=== PATIENT | female | born 1940 | race Caucasian/White ===

== ENCOUNTER 2017-09-08 15:57 | Inpatient (IN) | payer MEDICARE ==
[~2017-09-08] VITALS: Ht 162.6 cm; Wt 69.9 kg
[~2017-09-08 15:57] MED LIST: GABA-826 PO; LORA10TA75 PO; METO25TA35 PO; OMEP20CA9 PO; OXYC5TAB3 PO; PARO30TA45 PO
[2017-09-08] MEDS ORDERED: ASPIRIN 81 MG TABLET CHEW PO ONE (16:30)
[2017-09-08] MEDS ORDERED: ONDANSETRON 2MG/ML, 2ML IVPush ONE (16:30)
[2017-09-08] MEDS ORDERED: SODIUM CHLORIDE FLUSH 10ML SYR IVF ONE (16:30)
[2017-09-08] MEDS: PLEASE ENTER HEIGHT AND WEIGHT MC SCH (16:30)
[2017-09-08 16:53] LABS: HEMATOCRIT 41.7 % (34.6-47.8); HEMOGLOBIN 14.1 g/dL (11.7-16.4); WHITE BLOOD COUNT 7.3 x10^3/uL (3.4-10)
[2017-09-08 17:01] LABS: ASPARTATE AMINO TRANSFERASE 16 U/L (15-37); BLOOD UREA NITROGEN 12 mg/dL (7-18)
[2017-09-08] MEDS ORDERED: morphine SULFATE 10 MG/ML, 1ML ONE (17:03)
[2017-09-08] MEDS ORDERED: ASPIRIN 81 MG TABLET CHEW ONE (17:03)
[2017-09-08] MEDS ORDERED: ONDANSETRON 2MG/ML, 2ML ONE (17:03)
[2017-09-08] MEDS: MORPHINE SULFATE 4 MG/ML, 1ML IVPush PRN ×2 (17:08→18:04)
[2017-09-08 17:09] LABS: IS PT STATUS REG ER OR PRE ER? YES
[2017-09-08] MEDS ORDERED: SODIUM CHLORIDE 0.9% 1,000 ML IV ONE (17:44)
[2017-09-08] MEDS ORDERED: SODIUM CHLORIDE FLUSH 10ML SYR IVF PRN (18:00)
[2017-09-08] MEDS ORDERED: morphine SULFATE 10 MG/ML, 1ML IVPush PRN (18:30)
[2017-09-08] MEDS ORDERED: hydrALAzine 20 MG/ML, 1ML IVPush PRN (18:30)
[2017-09-08] MEDS ORDERED: ONDANSETRON 2MG/ML, 2ML IVPush PRN (18:30)
[2017-09-08] MEDS ORDERED: NITROGLYCERIN 0.4 MG BOTTLE (25 TABS) SL PRN (18:30)
[2017-09-08] MEDS ORDERED: POTASSIUM CHLORIDE 20 MEQ TAB.ER.PRT PO ONE (18:30)
[2017-09-08] MEDS ORDERED: LORATADINE 10 MG TABLET PO PRN (18:30)
[2017-09-08] MEDS ORDERED: ACETAMINOPHEN 325 MG TABLET PO PRN (18:30)
[2017-09-08] MEDS ORDERED: OXYcodone IR 5MG TABLET PO PRN (18:30)
[2017-09-08] MEDS ORDERED: SODIUM CHLORIDE FLUSH 10ML SYR IVF SCH (21:00)
[2017-09-08 21:05] VITALS: BP 142/85
[2017-09-08] MEDS: GABAPENTIN 100 MG CAPSULE PO SCH (22:06)
[2017-09-08] MEDS: METOPROLOL TARTRATE 25 MG TABLET PO SCH (22:06)
[2017-09-08] MEDS: HEPARIN 5,000 UNITS/ML, 1ML SQ SCH (22:07)
[2017-09-08 22:53] LABS: IS PT STATUS REG ER OR PRE ER? NO
[2017-09-09] MEDS ORDERED: MAGNESIUM SULFATE PMX 2GM/50ML 50 ML IV ONE
[2017-09-09] MEDS: PLEASE ENTER HEIGHT AND WEIGHT MC SCH (00:30)
[2017-09-09 01:48] VITALS: BP 100/64
[2017-09-09 05:24] LABS: HEMATOCRIT 35.5 % (34.6-47.8); WHITE BLOOD COUNT 6.2 x10^3/uL (3.4-10)
[2017-09-09 05:46] LABS: ASPARTATE AMINO TRANSFERASE 11 U/L (15-37); BLOOD UREA NITROGEN 7 mg/dL (7-18)
[2017-09-09 05:49] LABS: IS PT STATUS REG ER OR PRE ER? NO
[2017-09-09] MEDS ORDERED: ASPIRIN 325 MG TABLET EC PO SCH (06:00)
[2017-09-09] MEDS: HEPARIN 5,000 UNITS/ML, 1ML SQ SCH ×2 (06:21→14:00)
[2017-09-09] MEDS ORDERED: PNEUMOCOCCAL 23 VACCINE IM-VACC ONE (06:30)
[2017-09-09 07:14] VITALS: BP 100/63
[2017-09-09] MEDS ORDERED: REGADENOSON 0.4 MG/5 ML SYRINGE ONE (07:56)
[2017-09-09] MEDS ORDERED: PAROXETINE 10 MG TABLET PO SCH (09:00)
[2017-09-09] MEDS: METOPROLOL TARTRATE 25 MG TABLET PO SCH (11:50)
[2017-09-09] MEDS: GABAPENTIN 100 MG CAPSULE PO SCH ×2 (11:51→16:00)
[2017-09-09 12:54] VITALS: BP 109/61
[2017-09-09] MEDS ORDERED: ASPI-650 PO (15:07)
[2017-09-09] MEDS ORDERED: OMNIPAQUE 350 MG/ML, 100ML BOTTLE ONE (18:20)
== END 2017-09-09 19:28 | disposition home or self-care (01) | DRG 392 ==
LOC: ED 17:18 → EDIP 18:06 → 5SO 20:49
PROVIDERS: ADMIT Internal Medicine; ATTEND Family Medicine
DX: K52.9 Noninfective gastroenteritis and colitis, unspecified (principal); E87.5 Hyperkalemia; E86.0 Dehydration; E44.1 Mild protein-calorie malnutrition; R17 Unspecified jaundice; M06.9 Rheumatoid arthritis, unspecified; R07.89 Other chest pain; Z68.26 Body mass index [BMI] 26.0-26.9, adult; Z88.0 Allergy status to penicillin; I10 Essential (primary) hypertension; K21.9 Gastro-esophageal reflux disease without esophagitis; Z79.82 Long term (current) use of aspirin; Z80.6 Family history of leukemia; Z82.49 Family history of ischemic heart disease and other diseases of the circulatory system; Z86.010 Personal history of colon polyps
CPT/HCPCS: 36415; 71010; 74177; 78452; 80053; 80061; 83605; 83690; 83735; 83880; 84439; 84443; 84484; 85025; 85610; 85730; 90732; 93005; 93017; 96374; 96375; 96376; J1644; J2405; J2785; Q9967; A9502; C9898; J3475; J7030

== ENCOUNTER 2018-10-24 17:41 | Emergency (ER) | payer MEDICARE ==
[~2018-10-24] VITALS: Ht 162.6 cm; Wt 70.6 kg
[~2018-10-24 17:41] MED LIST changes: +ASPI-650 PO
[2018-10-24] MEDS ORDERED: SODIUM CHLORIDE FLUSH 10ML SYR IVF ONE (18:00)
--- NOTE | 2018-10-24 18:03 | NUR ---
PT REPORTS HAVING CONSTANT RUQ PAIN, THAT RADIATES TO HER BACK, FOR 3 DAYS. PT IS ALERT, ORIENTED, WITH NAD. PT IS CONNECTED TO THE MONITOR. CALL LIGHT WITHIN REACH.
[2018-10-24 18:07] VITALS: BP 168/88
[2018-10-24 18:13] LABS: BASOPHILS # (AUTO) 0.06 x10^3/uL (0-0.1); BASOPHILS % (AUTO) 1 % (0-1); EOSINOPHILS # (AUTO) 0.15 x10^3/uL (0-0.4); EOSINOPHILS % (AUTO) 2 % (1-7); LYMPHOCYTES # (AUTO) 1.89 x10^3/uL (1-3.4); LYMPHOCYTES % (AUTO) 21 % (22-44); MD NO; MEAN CORPUSCULAR HEMOGLOBIN 29.2 pg (27.0-34.8); MEAN CORPUSCULAR HGB CONC 34.2 g/dL (32.4-35.8); MEAN CORPUSCULAR VOLUME 85.4 fL (80-100); MEAN PLATELET VOLUME 9.4 fL (7.4-10.4); MONOCYTES # (AUTO) 0.72 x10^3/uL (0.2-0.8); MONOCYTES % (AUTO) 8 % (2-9); NEUTROPHILS # (AUTO) 6.11 x10^3/uL (1.8-6.8); NEUTROPHILS % (AUTO) 69 % (42-75); PLATELET COUNT 308 x10^3/uL (130-400); RED BLOOD COUNT 4.72 x10^6/uL (3.82-5.3); RED CELL DISTRIBUTION WIDTH 14.7 % (9.6-15.2)
[2018-10-24 18:26] LABS: ALANINE AMINOTRANSFERASE 19 U/L (12-78); ALBUMIN 4.1 g/dL (3.4-5.0); ANION GAP 11 mmol/L (5-15); CHLORIDE 103 mmol/L (98-107); CREATININE 0.99 mg/dL (0.55-1.02)
[2018-10-24 18:28] LABS: ALKALINE PHOSPHATASE 73 U/L (45-117); BILIRUBIN,TOTAL 1.5 mg/dL (0.2-1.0); TOTAL PROTEIN 8.5 g/dL (6.4-8.2)
--- NOTE | 2018-10-24 18:40 | NUR ---
PT AMBULATED TO THE BATHROOM WITH STEADY GAIT. SAMPLE SENT TO THE LAB.
[2018-10-24] MEDS ORDERED: OMNIPAQUE 350 MG/ML, 100ML BOTTLE ONE (18:55)
--- NOTE | 2018-10-24 18:57 | NUR ---
REPORT GIVEN TO BARRON GARCIA.
[2018-10-24 19:03] LABS: MICROSCOPIC AUTO
[2018-10-24 19:04] LABS: CULTURE INDICATED? YES
[2018-10-24] MEDS ORDERED: KETOROLAC 30 MG/1 ML IVPush ONE (20:30)
[2018-10-24] MEDS ORDERED: KETOROLAC 30 MG/1 ML ONE (20:40)
== END 2018-10-24 21:01 | disposition home or self-care (01) ==
LOC: ED 20:15
DX: R10.11 Right upper quadrant pain (principal); R10.31 Right lower quadrant pain
CPT/HCPCS: 36415; 74021; 74177; 80053; 81001; 83690; 85025; 87086; 96374; 99284; J1885; Q9967

== ENCOUNTER 2019-06-15 17:45 | Inpatient (IN) | payer MEDICARE ==
[~2019-06-15] VITALS: Ht 162.6 cm; Wt 69.1 kg
[2019-06-17 13:06] VITALS: BP 110/72
== END 2019-06-17 15:46 | disposition home or self-care (01) | DRG 306 ==
LOC: ED 20:00 → EDIP 20:09 → ED 20:11 → 5SO 21:16 → DCLOUNGE 06-17 15:25
PROVIDERS: ADMIT Family Medicine; ATTEND Family Medicine
DX: I34.1 Nonrheumatic mitral (valve) prolapse (principal); N17.0 Acute kidney failure with tubular necrosis; M06.9 Rheumatoid arthritis, unspecified; D72.819 Decreased white blood cell count, unspecified; I10 Essential (primary) hypertension; K21.9 Gastro-esophageal reflux disease without esophagitis; Z80.6 Family history of leukemia; Z82.49 Family history of ischemic heart disease and other diseases of the circulatory system; Z90.710 Acquired absence of both cervix and uterus; Z90.49 Acquired absence of other specified parts of digestive tract; Z88.0 Allergy status to penicillin
CPT/HCPCS: 36415; 71045; 80048; 80053; 81001; 83735; 83880; 84100; 84484; 85025; 85610; 85730; 86850; 86900; 87040; 87086; 93005; 93306; 99285; G0378; J0744; J1644; Q0162; J7030; Q0163

== ENCOUNTER 2020-07-14 13:21 | Outpatient (CLI) | payer MEDICARE ==
[~2020-07-14 13:21] MED LIST changes: +ACET325T26 PO; +ACET650S12 PR; +ASPI-496 PO; +ASPI81TA45 PO; +BENZ100C PO; +BISA10SU4 PR; +BISA5TAB5 PO; +DEXT-230 PO; +DIPH50CA PO; +FURO20TA3 PO; +GABA300C10 PO; +HYDR-3245 PO; +INFL100V INJ; +INSU100I11 SQ-INSULIN; +LISI-167 PO; +LISI1TAB23 PO; +MAGN400O7 PO; +METO25CA PO; +METO25TA91 PO; +OMEP-110 PO; +ONDA4VIA60 IVPush; +PARO20TA4 PO; +PARO30TA3 PO; +PARO40TA61 PO; +POTA20TA6 PO; +Warfarin Low Dose Protocol XX; +[UNRECOGNIZED DRUG - REMARK] PO
== END 2020-07-14 23:59 | disposition home or self-care (01) ==
LOC: CARD 13:21
PROVIDERS: ATTEND Physician Assistant Medical
DX: R06.09 Other forms of dyspnea (principal); I11.0 Hypertensive heart disease with heart failure; I05.9 Rheumatic mitral valve disease, unspecified
CPT/HCPCS: 94060; 94726; 94729

== ENCOUNTER → 2020-09-05 | Outpatient (CLI) | payer MEDICARE ==
[~2020-09-05] MED LIST changes: +REGADENOSON 0.4 MG/5 ML SYRINGE ONE
== END | disposition home or self-care (01) ==
LOC: CFH 06:45
PROVIDERS: ATTEND Physician Assistant Medical
DX: I08.3 Combined rheumatic disorders of mitral, aortic and tricuspid valves (principal); I11.9 Hypertensive heart disease without heart failure; R06.09 Other forms of dyspnea
CPT/HCPCS: 78452; 93017; 93306; A9502; J2785

== ENCOUNTER 2020-09-07 12:15 | Outpatient (CLI) | payer MEDICARE ==
[~2020-09-07 12:15] MED LIST changes: -REGADENOSON 0.4 MG/5 ML SYRINGE ONE
[2020-09-07] MEDS ORDERED: OMNIPAQUE 350 MG/ML, 75ML BOTTLE ONE (13:15)
== END 2020-09-07 23:59 | disposition home or self-care (01) ==
LOC: RAD 12:15
PROVIDERS: ATTEND Family Medicine
DX: R91.1 Solitary pulmonary nodule (principal); J84.10 Pulmonary fibrosis, unspecified; K44.9 Diaphragmatic hernia without obstruction or gangrene
CPT/HCPCS: 71275; Q9967